=== PATIENT | male | born 1950 | race Caucasian/White ===

== ENCOUNTER → 2016-06-28 | Outpatient (CLI) | payer BC ==
[~2016-06-28] MED LIST: ASPI81TA25 PO; ATV/2 PO; CARB25TA12 PO; IBUP-1277 PO; LAMO25TA PO; METO25TA3 PO; SIMV20TA5 PO
--- NOTE | 2016-07-05 06:42 | CODING QUERY MEDICAL NECESSITY ---
SUPPORTING DIAGNOSIS NEEDED A supporting diagnosis is required for the test/procedure performed on this patient in order for us to be reimbursed by the patient's insurance. Please provide a supporting diagnosis for the following test/procedure listed below next to the test name along with your signature. *If there is no additional diagnosis for this patient that would support the following test/procedure please document that below next to the test/procedure. Test(s)/Procedure(s) that require a supporting diagnosis: * PSA DIAGNOSIS: * DOS: 06/28/16 Provider Signature: Date: Thank you Samara Esparza [employer] Once completed, please kindly fax back to [phone] For questions please call [phone]
== END | disposition home or self-care (01) ==
LOC: C.LAB1850 14:26
PROVIDERS: ATTEND Urology
DX: R39.9 Unspecified symptoms and signs involving the genitourinary system (principal); R97.20 Elevated prostate specific antigen [PSA]

== ENCOUNTER → 2017-03-02 | Outpatient (CLI) | payer BC | END | disposition home or self-care (01) | LOC: C.LAB 18:38 | PROVIDERS: ATTEND Urology | DX: R39.9 Unspecified symptoms and signs involving the genitourinary system (principal) ==

== ENCOUNTER 2017-12-19 08:52 | Inpatient (IN) | payer BC, OTHER ==
[2017-11-30 16:23] VITALS: BMI 18.0
[2017-12-06 14:30] VITALS: BMI 18.0
--- NOTE | 2017-12-06 14:46 | PAT Medication Instructions ---
Service Date Dec 06, 2017. Current Home Medication List Aspirin (Aspir-Low), 81 MG PO QAM Carbidopa/Levodopa (Sinemet 25MG/100MG), 1 TAB PO QID Dutasteride (Avodart), 0.5 MG PO NOON Enteral Nutrition Formula (Ensure Plus Vanilla), 1 CAN GJT TID Ibuprofen (Advil), 400-600 MG PO Q6H PRN for Pain Lamotrigine (Lamictal), 25 MG PO HS Lorazepam (Ativan), 2 MG PO BID PRN for Anxiety Metoprolol Succ (Toprol Xl) (Toprol-Xl), 12.5 MG PO QAM Mirabegron (Myrbetriq Er), 50 MG PO QAM Simvastatin (Zocor), 20 MG PO QPM Tamsulosin Hcl (Flomax), 0.4 MG PO QPM Trospium Chloride (Trospium Chloride Er), 60 MG PO QAM Medication Instructions For Your Scheduled Surgery -Check with surgeon: Ibuprofen (Advil), 400-600 MG PO Q6H PRN for Pain Aspirin (Aspir-Low), 81 MG PO QAM - Hold the following medications the morning of surgery: Enteral Nutrition Formula (Ensure Plus Vanilla), 1 CAN GJT TID Mirabegron (Myrbetriq Er), 50 MG PO QAM Trospium Chloride (Trospium Chloride Er), 60 MG PO QAM - Take the following medications the morning of surgery with a sip of water: Carbidopa/Levodopa (Sinemet 25MG/100MG), 1 TAB PO QID Lorazepam (Ativan), 2 MG PO BID PRN for Anxiety (if needed) Metoprolol Succ (Toprol Xl) (Toprol-Xl), 12.5 MG PO QAM - Take the following medications as scheduled the night before surgery: Carbidopa/Levodopa (Sinemet 25MG/100MG), 1 TAB PO QID Dutasteride (Avodart), 0.5 MG PO NOON Enteral Nutrition Formula (Ensure Plus Vanilla), 1 CAN GJT TID Lamotrigine (Lamictal), 25 MG PO HS Lorazepam (Ativan), 2 MG PO BID PRN for Anxiety (if needed) Simvastatin (Zocor), 20 MG PO QPM Tamsulosin Hcl (Flomax), 0.4 MG PO QPM If you have any questions please call us at [phone] or [phone] or [phone]
[2017-12-19] VITALS (7 sets, daily range): BP systolic 111–174; BP diastolic 62–83; PULSE 52–75; TEMP 36.4–36.9; O2SAT 95–99; BMI 18.0
[~2017-12-19] VITALS: Ht 177.8 cm; Wt 58.8 kg
[~2017-12-19 08:52] MED LIST changes: +ATROPINE SULFATE 0.1 MG/ML 5ML SYR IV PRN; +DUTA0.5C PO; +EpHEDrine SULFATE INJ 50 MG/ML AMP IV PRN; +LACTATED RINGER'S 1000ML 1,000 ML IV SCH; +MIRA1TAB3 PO; +NUTR-977 PO; +ONDANSETRON INJ 2 MG/ML 2 ML VIAL IV PRN; +TAMS0.4C38 PO; +TROS1CAP2 PO
[2017-12-19] MEDS ORDERED: LIDOCAINE HCL 2% 2 ML VIAL (20MG/ML) ONE (09:16)
[2017-12-19] MEDS ORDERED: ONDANSETRON INJ 2 MG/ML 2 ML VIAL ONE (09:16)
[2017-12-19] MEDS ORDERED: FENTANYL CITRATE INJ 50 MCG/1 ML 2 ML VIAL ONE ×2 (09:16→10:37)
[2017-12-19] MEDS ORDERED: PROPOFOL IV EMULSION 10 MG/ML 20 ML VIAL ONE (09:16)
[2017-12-19] MEDS ORDERED: MIDAZOLAM HCL 1 MG/ML 2ML VIAL ONE (09:16)
[2017-12-19] MEDS ORDERED: DEXAMETHASONE SOD INJ 4 MG/ML VIAL ONE (09:16)
--- NOTE | 2017-12-19 09:35 | History & Physical Bridge Note ---
H&P Re-Evaluation Bridge Note: I have examined the patient, reviewed the History & Physical and in the interval since the performance of the History & Physical I have noted the following changes of clinical significance: No changes noted
[2017-12-19] MEDS ORDERED: BUPIVACAINE 0.25% 30 ML VIAL ONE (09:46)
[2017-12-19] MEDS ORDERED: CIPROFLOXACIN / D5W 400 MG IV SCH (10:00)
[2017-12-19] MEDS: FENTANYL CITRATE INJ 50 MCG/1 ML 2 ML VIAL IV PRN ×4 (11:32→11:47)
[2017-12-19] MEDS ORDERED: LORAZEPAM 2 MG TAB PO PRN (11:45)
[2017-12-19] MEDS ORDERED: HYDROmorphone INJ 1 MG/ML SYR IV PRN (11:45)
[2017-12-19] MEDS ORDERED: ONDANSETRON INJ 2 MG/ML 2 ML VIAL IV PRN (11:45)
[2017-12-19] MEDS ORDERED: PHENAZOPYRIDINE HCL 200 MG TAB PO PRN (11:45)
--- NOTE | 2017-12-19 12:02 | [facility] Operative Report ---
Operative Report Operative Date Dec 19, 2017. Pre-Operative Diagnosis Bladder Stones Post-Operative Diagnosis Bladder Stones Procedure(s) Performed Open Lithopaxy Surgeon Dr. Efrain Levin Marketing Teacher Surgeon(s) Dr. Too Sharma Estimated Blood Loss 20 ml Findings Patient had a large bladder stone Specimens A: Bladder stone for analysis Drains 22 [place] Shi catheter in the bladder 15 [place] Oj-Jorgensen drain Anesthesia Type General Complication(s) none Disposition yes Indications 67-year-old white male with a large bladder stone being admitted for open litholapaxy Description of Procedure After the induction of an adequate general anesthesia and appropriate timeout patient's lower abdomen genitalia were prepped with ChloraPrep and draped in sterile fashion. A 22 [place] Shi catheter was then inserted per urethra into the bladder bladder was filled with sterile saline. Lower midline abdominal incision was made being carried down through skin subcutaneous tissues down to the fascia the fascia was sharply opened in the midline. The rectus muscles were split. Holding stitches of 3-0 chromic were then placed on the left and right sides of the bladder. The bladder was then opened with electrocautery the sterile saline was then drained from the bladder. The bladder stone was then extracted from the bladder. The bladder was then irrigated with sterile saline to remove any small fragments and sand-like material which was present. After cleaning out the bladder entirely any bleeding points were electrocoagulated. The bladder was then closed in 3 layers the mucosa was closed with a running 3-0 chromic the muscular layer was closed with a running 2 -0 Vicryl and then reinforced with a 2-0 Vicryl in a Lembert type fashion. Shi was irrigated there was no leak from the bladder. 15 [place] Oj- Jorgnesen drain was placed over the top of the bladder and brought out through separate stab wound sutured in place with a 3-0 nylon. the fascia was reapproximated with 0 Vicryl and the skin was closed with a subcuticular 4 -0 Monocryl. Wound was then washed and dried and a dry sterile dressing was applied. All needle sponge and instrument counts are correct at the end of the case. Patient tolerated the procedure well and was taken recovery room in stable condition I attest to the content of the Intraoperative Record and any orders documented therein. Any exceptions are noted below.
--- NOTE | 2017-12-19 13:47 | Anesthesiology Progress Note ---
Anesthesia Post Op Note Date & Time Dec 19, 2017 at 13:47 Vital Signs Pain Intensity: 0.0 Vital Signs Past 12 Hours Date Time Temp Pulse Resp B/P (MAP) Pulse Ox O2 Delivery O2 Flow Rate FiO2 12/19/17 13:37 65 16 148/68 (94) 99 Nasal Cannula 2.0 12/19/17 12:40 36.4 67 17 174/83 (113) 98 Nasal Cannula 2.0 12/19/17 12:40 Nasal Cannula 2.0 12/19/17 12:40 Nasal Cannula 2.0 12/19/17 12:15 59 16 173/84 95 Room Air 12/19/17 12:05 36.2 58 16 167/78 95 Room Air 12/19/17 11:55 60 16 168/75 99 Oxymask 3 12/19/17 11:45 63 16 162/77 100 Oxymask 5 12/19/17 11:35 64 16 160/82 99 Oxymask 5 12/19/17 11:27 36.1 75 16 140/79 99 Oxymask 5 12/19/17 09:42 36.7 52 20 140/70 (93) 98 Room Air Notes Mental Status: alert / awake / arousable, participated in evaluation Pt Amnestic to Procedure: Yes Nausea / Vomiting: adequately controlled Pain: adequately controlled Airway Patency, RR, SpO2: stable & adequate BP & HR: stable & adequate Hydration State: stable & adequate Anesthetic Complications: no major complications apparent
[2017-12-19] MEDS: CARBIDOPA/LEVODOPA 25/100MG TAB PO SCH ×3 (14:47→20:42)
[2017-12-19] MEDS: KETOROLAC TROMETHAMINE 15 MG/ML VIAL IV. PRN ×2 (14:51→20:48)
[2017-12-19] MEDS: D5W AND 1/2NSS + 20MEQ KCL 1,000 ML IV SCH (17:26)
[2017-12-19] MEDS: TAMSULOSIN HCL 0.4 MG CAP PO SCH (20:41)
[2017-12-19] MEDS: SIMVASTATIN 20 MG TAB PO SCH (20:42)
[2017-12-19] MEDS: DOCUSATE SODIUM 100 MG CAP PO SCH (20:54)
[2017-12-19] MEDS: CIPROFLOXACIN / D5W 400 MG in PREMIXED IN D5W 200 ML IV SCH (21:37)
[2017-12-19] MEDS ORDERED: CIPROFLOXACIN / D5W 400 MG in PREMIXED IN D5W 0 ML IV SCH (22:00)
[2017-12-19] MEDS ORDERED: NURSING DECISION MEDICATION ORDER SCH (23:30)
[2017-12-20] VITALS (9 sets, daily range): BP systolic 109–163; BP diastolic 53–71; PULSE 61–84; TEMP 36.7–37.5; O2SAT 95–96; Ht 177.8 cm; Wt 58.8 kg
[2017-12-20] MEDS: D5W AND 1/2NSS + 20MEQ KCL 1,000 ML IV SCH (03:03)
[2017-12-20] MEDS: KETOROLAC TROMETHAMINE 15 MG/ML VIAL IV. PRN ×2 (03:03→09:56)
[2017-12-20 06:03] LABS: BASO % 0.1 %; BASO ABS # 0.01 K/uL (0-0.2); EOS % 0.5 %; EOS ABS # 0.07 K/uL (0-0.5); HEMATOCRIT 34.8 % (42-52); HEMOGLOBIN 11.4 g/dL (14.0-18.0); IG# 0.02 K/uL (0.00-0.02); LYMPH ABS # 1.19 K/uL (1.2-3.4); MEAN CELL VOLUME 100.3 fL (80-100); MEAN CORPUSCULAR HEMOGLOBIN 32.9 pg (25-34); MEAN CORPUSCULAR HGB CONC 32.8 g/dl (32-36); MEAN PLATELET VOLUME 9.3 fL (7.4-10.4); MONO % 9.3 %; MONO ABS # 1.24 K/uL (0.11-0.59); NEUT % 80.9 %; NEUT ABS # 10.75 K/uL (1.4-6.5); PLATELET COUNT 161 K/uL (130-400); RED CELL DISTRIBUTION WIDTH CV 13.4 % (11.5-14.5); RED CELL DISTRIBUTION WIDTH SD 48.7 fL (36.4-46.3); WHITE BLOOD COUNT 13.28 K/uL (4.8-10.8)
[2017-12-20 06:38] LABS: CALCIUM 7.8 mg/dl (8.5-10.1); CREATININE 0.9 mg/dl (0.60-1.40)
--- NOTE | 2017-12-20 09:27 | Clinical Documentation Query ---
AMIRAH Barron : CLINICAL DOCUMENTATION QUERIES QUERY 1 OF 2 Patient is a 67 year old male who underwent open litholapaxy on 12/19. H&P reviewed for severity of illness as well as historical EMR documentation. As appropriate, consider incorporation of the following diagnoses as this affects accurate DRG assignment. Thank you. In your clinical opinion is this patient being managed for: ( ) Chronic systolic CHF, cardiomyopathy ( ) Not Agree ( ) Other explanation of clinical findings (No explanation is considered a No Response) ( ) Unable to determine ( ) Need to Discuss (Phone CDS or qliq) (No discussion is considered a No Response) The medical record reflects the following clinical findings, treatment, and risk factors. Clinical Indicators: Historical documentation. Echocardiogram (06/27/15) demonstrated a mild to moderately reduced LV systolic function. Treatment: Coreg, ASA Risk Factors: Age, hypertension QUERY 2 OF 2 BMI, per EMR is 18.6 kg/m*m. In order to capture this clinical information, an associated diagnosis must explicitly be documented by the provider per CMS coding guidelines. In your clinical opinion is this patient being managed for: ( ) Underweight, BMI 18.6 kg/m*m ( ) Not Agree ( ) Other explanation of clinical findings (No explanation is considered a No Response) ( ) Unable to determine ( ) Need to Discuss (Phone CDS or qliq) (No discussion is considered a No Response) The medical record reflects the following clinical findings, treatment, and risk factors. Clinical Indicators: As above Treatment: Regular diet, I/O Risk Factors: Inadequate caloric intake, age Please clarify and document your clinical opinion in the progress notes and discharge summary. Terms such as "probable", "suspected", "likely", "questionable", "possible", or "still to be ruled out" are acceptable. IF IN AGREEMENT, YOU MUST DOCUMENT ABOVE DIAGNOSTIC STATEMENT IN DAILY PROGRESS NOTES AND DISCHARGE SUMMARY. This document is not part of the patient's record. Thank You, Hitesh Liao, KARLA [phone]
[2017-12-20] MEDS: DOCUSATE SODIUM 100 MG CAP PO SCH ×2 (09:46→19:26)
[2017-12-20] MEDS: ASPIRIN 81 MG ECTAB PO SCH (09:46)
[2017-12-20] MEDS: MIRABEGRON ER 25 MG TAB PO SCH (09:46)
[2017-12-20] MEDS: CARBIDOPA/LEVODOPA 25/100MG TAB PO SCH ×4 (09:46→19:26)
[2017-12-20] MEDS: CIPROFLOXACIN / D5W 400 MG in PREMIXED IN D5W 200 ML IV SCH (09:46)
--- NOTE | 2017-12-20 09:48 | Urology Progress Note ---
Progress Note Date of Service Dec 20, 2017. Subjective Pt evaluation today including: conversation w/ patient, chart review, lab review Pain: incisional pain Voiding: grant catheter in place (patent, draining light caruso colored urine ) 67 yo male s/p open lithopaxy. Pt c/o some incisional pain this morning. Denies n/v. Tolerating PO. + flatus. Denies BM. Pt reports ambulating to the hallway yesterday with a walker. He reports some dizziness while walking. Labs stable. Constitutional: No fever, No chills Respiratory: No shortness of breath Cardiovascular: No chest pain Abdomen: + pain (incisional pain ), No nausea, No vomiting Male : + hematuria Heme: No abnormal bleeding/bruising Objective Vital Signs Date Time Temp Pulse Resp B/P (MAP) Pulse Ox O2 Delivery O2 Flow Rate FiO2 12/20/17 07:59 95 Room Air 12/20/17 07:37 37.5 69 17 116/61 (79) 95 Room Air 12/20/17 07:20 Room Air 12/20/17 07:20 37.1 12/20/17 04:03 37.3 68 16 122/67 (85) 95 Room Air 12/19/17 23:30 Room Air 12/19/17 23:03 36.7 67 18 130/65 (86) 95 Room Air 12/19/17 19:03 36.9 63 16 111/62 (78) 95 Room Air 12/19/17 15:15 Room Air 12/19/17 14:58 75 16 138/75 (96) 99 12/19/17 14:10 74 16 137/68 (91) 99 12/19/17 13:37 65 16 148/68 (94) 99 Nasal Cannula 2.0 12/19/17 12:40 36.4 67 17 174/83 (113) 98 Nasal Cannula 2.0 12/19/17 12:40 Nasal Cannula 2.0 12/19/17 12:40 Nasal Cannula 2.0 12/19/17 12:15 59 16 173/84 95 Room Air 12/19/17 12:05 36.2 58 16 167/78 95 Room Air 12/19/17 11:55 60 16 168/75 99 Oxymask 3 12/19/17 11:45 63 16 162/77 100 Oxymask 5 12/19/17 11:35 64 16 160/82 99 Oxymask 5 12/19/17 11:27 36.1 75 16 140/79 99 Oxymask 5 12/19/17 09:42 36.7 52 20 140/70 (93) 98 Room Air Physical Exam General Appearance: no apparent distress Eyes: normal inspection ENT: hearing grossly normal Neck: no JVD Respiratory/Chest: no respiratory distress, no accessory muscle use Cardiovascular: no JVD Abdomen: + pertinent finding (incision c/d/i; CHERYL draining sanguinous fluid) Extremities: normal inspection Neurologic/Psychiatric: alert, normal mood/affect, oriented x 3 Skin: normal color Laboratory Results Last 24 Hours Test 12/19/17 11:05 12/20/17 05:50 White Blood Count 13.28 K/uL Red Blood Count 3.47 M/uL Hemoglobin 11.4 g/dL Hematocrit 34.8 % Mean Corpuscular Volume 100.3 fL Mean Corpuscular Hemoglobin 32.9 pg Mean Corpuscular Hemoglobin Concent 32.8 g/dl Platelet Count 161 K/uL Mean Platelet Volume 9.3 fL Neutrophils (%) (Auto) 80.9 % Lymphocytes (%) (Auto) 9.0 % Monocytes (%) (Auto) 9.3 % Eosinophils (%) (Auto) 0.5 % Basophils (%) (Auto) 0.1 % Neutrophils # (Auto) 10.75 K/uL Lymphocytes # (Auto) 1.19 K/uL Monocytes # (Auto) 1.24 K/uL Eosinophils # (Auto) 0.07 K/uL Basophils # (Auto) 0.01 K/uL RDW Standard Deviation 48.7 fL RDW Coefficient of Variation 13.4 % Immature Granulocyte % (Auto) 0.2 % Immature Granulocyte # (Auto) 0.02 K/uL Sodium Level 138 mmol/L Potassium Level 4.0 mmol/L Chloride Level 108 mmol/L Carbon Dioxide Level 26 mmol/L Anion Gap 4.0 mmol/L Blood Urea Nitrogen 14 mg/dl Creatinine 0.90 mg/dl Est Creatinine Clear Calc Drug Dose 64.4 ml/min Estimated GFR () 100.6 Estimated GFR (Non- 86.8 BUN/Creatinine Ratio 15.4 Random Glucose 114 mg/dl Calcium Level 7.8 mg/dl Assessment and Plan POD #1 s/p open lithopaxy Pt clinically stable. Will hep lock IVF. Continue diet. Encourage use of IS. Encourage ambulation to hallway. Will order PT/OT eval as the pt reports he has been dizzy and weak at times. Uses a walker at home. Possible d/c home after lunch if pain controlled and ambulating without difficulty. Will attempt to set him up with home health. He does report he lives with his , and his son is staying with him for the next 5 days. Pt seen and examined CHERYL minimal output urine clearing can remove cheryl grant to remain for 10 days Discharge planning: home with home health
[2017-12-20] MEDS ORDERED: TRAM-10 PO (09:51)
[2017-12-20] MEDS ORDERED: CIPR1TAB10 PO (09:51)
[2017-12-20] MEDS ORDERED: PHEN-1043 PO (09:51)
[2017-12-20] MEDS ORDERED: CLC100 PO (09:51)
--- NOTE | 2017-12-20 10:02 | Discharge Instructions ---
Discharge Instructions Date of Service Dec 20, 2017. Admission Reason for Admission: Bladder Stone Discharge Discharge Diagnosis / Problem: Bladder stone Discharge Goals Goal(s): Decrease discomfort, Improve function, Increase independence, Improve disease control, Improve nutritional status, Therapeutic intervention Activity Recommendations Activity Limitations: as noted below Lifting Limitations: no more than 10 pounds (x 6 weeks) Exercise/Sports Limitations: rest today, gradually increase as tolerated ( Light activity x 6 weeks) May Resume Sexual Activity: after follow-up appointment (When cleared by Dr. Levin.) Shower/Bathe: tomorrow Driving or Machine Use: Do not drive x 2 weeks. . Instructions / Follow-Up Instructions / Follow-Up 1.Follow-up for cystogram on 12-29-17 at 7:45am. Follow-up for grant catheter removal on 12-29-[address] Levin's office. Please call [phone] if you need to reschedule for any reason. 2. You have been prescribed the antibiotic Ciprofloxacin. Finish all as directed. Current Hospital Diet Patient's current hospital diet: Regular Diet Discharge Diet Recommended Diet: Regular Diet Procedures Procedures Performed: Open Lithopaxy Pending Studies Studies pending at discharge: yes List of pending studies: bladder stone Medical Emergencies . Who to Call and When: Medical Emergencies: If at any time you feel your situation is an emergency, please call 911 immediately. . Non-Emergent Contact Non-Emergency issues call your: Urologist Call Non-Emergent contact if: temperature is above 101.5, your pain is not controlled, your pain is worsening, your pain is unusual for you, your pain is concerning you, wound has increased drainage, wound has increased redness, wound has increased pain, you have any medication questions . . "Provider Documentation" section prepared by Mahnaz Fofana. . [place] Drug Monitoring Program Search Results: patient reviewed within database, see additional documentation (Chronic Lorazepam prescriptions. No narcotics noted. )
[2017-12-20] MEDS: METOPROLOL SUCC 25MG EXT REL TAB PO SCH (10:49)
[2017-12-20] MEDS ORDERED: NURSING VERBAL MED ORDER ONE (12:15)
[2017-12-20 14:53] LABS: HEMATOCRIT 36.6 % (42-52); HEMOGLOBIN 11.9 g/dL (14.0-18.0); MEAN CELL VOLUME 101.1 fL (80-100); MEAN CORPUSCULAR HEMOGLOBIN 32.9 pg (25-34); MEAN CORPUSCULAR HGB CONC 32.5 g/dl (32-36); MEAN PLATELET VOLUME 9.3 fL (7.4-10.4); PLATELET COUNT 170 K/uL (130-400); RED CELL DISTRIBUTION WIDTH CV 13.4 % (11.5-14.5); RED CELL DISTRIBUTION WIDTH SD 49.8 fL (36.4-46.3); WHITE BLOOD COUNT 14.76 K/uL (4.8-10.8)
[2017-12-20 15:20] LABS: CALCIUM 8.2 mg/dl (8.5-10.1); CREATININE 0.91 mg/dl (0.60-1.40); POTASSIUM 4.4 mmol/L (3.5-5.1)
[2017-12-20] MEDS: SIMVASTATIN 20 MG TAB PO SCH (19:26)
[2017-12-20] MEDS: TAMSULOSIN HCL 0.4 MG CAP PO SCH (19:26)
[2017-12-21] VITALS (8 sets, daily range): BP systolic 97–169; BP diastolic 50–79; PULSE 60–71; TEMP 36.6–37.4; O2SAT 9–96
[2017-12-21 07:01] LABS: HEMATOCRIT 38.8 % (42-52); HEMOGLOBIN 12.7 g/dL (14.0-18.0); MEAN CORPUSCULAR HEMOGLOBIN 32.4 pg (25-34); MEAN CORPUSCULAR HGB CONC 32.7 g/dl (32-36); MEAN PLATELET VOLUME 9.3 fL (7.4-10.4); PLATELET COUNT 175 K/uL (130-400); RED CELL DISTRIBUTION WIDTH CV 13.3 % (11.5-14.5); RED CELL DISTRIBUTION WIDTH SD 47.5 fL (36.4-46.3); WHITE BLOOD COUNT 16.04 K/uL (4.8-10.8)
[2017-12-21 07:45] LABS: CALCIUM 8.6 mg/dl (8.5-10.1); CREATININE 0.61 mg/dl (0.60-1.40); POTASSIUM 3.9 mmol/L (3.5-5.1)
--- NOTE | 2017-12-21 08:21 | Urology Progress Note ---
Progress Note Date of Service Dec 21, 2017. Subjective Pt evaluation today including: conversation w/ patient, chart review, lab review Pain: Denies Voiding: grant catheter in place (patent, draining clear, yellow urine ) Pt denies pain or n/v this morning. PT yesterday recommended SNF placement for rehab d/t weakness. White count noted to have increased to 16.04 this morning. Post-op Cipro discontinued yesterday. Constitutional: No fever, No chills Respiratory: No shortness of breath Cardiovascular: No chest pain Abdomen: No pain, No nausea, No vomiting Male : No hematuria Heme: No abnormal bleeding/bruising Objective Vital Signs Date Time Temp Pulse Resp B/P (MAP) Pulse Ox O2 Delivery O2 Flow Rate FiO2 12/21/17 08:14 95 12/21/17 07:58 37.3 68 16 122/68 (86) 95 Room Air 12/20/17 23:15 36.7 71 18 163/71 (101) 95 Room Air 12/20/17 20:00 Room Air 12/20/17 15:15 Room Air 12/20/17 15:00 37.4 62 16 112/53 (72) 96 12/20/17 11:47 84 96 12/20/17 10:47 36.9 61 109/62 (78) Physical Exam General Appearance: no apparent distress Eyes: normal inspection ENT: hearing grossly normal Neck: no JVD Respiratory/Chest: no respiratory distress, no accessory muscle use Abdomen: + pertinent finding (abdominal incision c/d/i; CARL draining small amount of serosanguinous fluid) Extremities: normal inspection Neurologic/Psychiatric: alert, normal mood/affect, oriented x 3 Skin: normal color Laboratory Results Last 24 Hours Test 12/20/17 14:42 12/21/17 06:27 White Blood Count 14.76 K/uL 16.04 K/uL Red Blood Count 3.62 M/uL 3.92 M/uL Hemoglobin 11.9 g/dL 12.7 g/dL Hematocrit 36.6 % 38.8 % Mean Corpuscular Volume 101.1 fL 99.0 fL Mean Corpuscular Hemoglobin 32.9 pg 32.4 pg Mean Corpuscular Hemoglobin Concent 32.5 g/dl 32.7 g/dl RDW Standard Deviation 49.8 fL 47.5 fL RDW Coefficient of Variation 13.4 % 13.3 % Platelet Count 170 K/uL 175 K/uL Mean Platelet Volume 9.3 fL 9.3 fL Sodium Level 138 mmol/L 137 mmol/L Potassium Level 4.4 mmol/L 3.9 mmol/L Chloride Level 106 mmol/L 104 mmol/L Carbon Dioxide Level 28 mmol/L 27 mmol/L Anion Gap 4.0 mmol/L 6.0 mmol/L Blood Urea Nitrogen 16 mg/dl 10 mg/dl Creatinine 0.91 mg/dl 0.61 mg/dl Est Creatinine Clear Calc Drug Dose 63.7 ml/min 95.1 ml/min Estimated GFR () 99.3 118.1 Estimated GFR (Non- 85.7 101.9 BUN/Creatinine Ratio 17.4 16.9 Random Glucose 145 mg/dl 113 mg/dl Calcium Level 8.2 mg/dl 8.6 mg/dl Assessment and Plan POD #2 s/p open lithopaxy Pt clinically stable. Will transition him to PO Cipro. Continue diet. Encourage use of IS. Continue PT/OT. Plan for d/c when placement available at SNF for rehab. Pt seen this morning urine clear abd benign wound clean ok for discharge to rehab facility
[2017-12-21] MEDS: DOCUSATE SODIUM 100 MG CAP PO SCH ×2 (08:36→19:47)
[2017-12-21] MEDS: METOPROLOL SUCC 25MG EXT REL TAB PO SCH (08:36)
[2017-12-21] MEDS: MIRABEGRON ER 25 MG TAB PO SCH (08:37)
[2017-12-21] MEDS: CARBIDOPA/LEVODOPA 25/100MG TAB PO SCH ×4 (08:37→19:46)
[2017-12-21] MEDS: ASPIRIN 81 MG ECTAB PO SCH (08:37)
[2017-12-21] MEDS: CIPROFLOXACIN 500 MG TAB PO SCH ×2 (09:34→19:47)
[2017-12-21] MEDS: KETOROLAC TROMETHAMINE 15 MG/ML VIAL IV. PRN (10:23)
[2017-12-21 15:47] LABS: BASO % 0.1 %; BASO ABS # 0.02 K/uL (0-0.2); EOS % 1.5 %; EOS ABS # 0.22 K/uL (0-0.5); HEMATOCRIT 38.4 % (42-52); HEMOGLOBIN 12.6 g/dL (14.0-18.0); IG# 0.03 K/uL (0.00-0.02); LYMPH % 7.5 %; LYMPH ABS # 1.09 K/uL (1.2-3.4); MEAN CELL VOLUME 100.8 fL (80-100); MEAN CORPUSCULAR HEMOGLOBIN 33.1 pg (25-34); MEAN CORPUSCULAR HGB CONC 32.8 g/dl (32-36); MEAN PLATELET VOLUME 9.8 fL (7.4-10.4); MONO % 9.5 %; MONO ABS # 1.39 K/uL (0.11-0.59); NEUT % 81.2 %; NEUT ABS # 11.81 K/uL (1.4-6.5); PLATELET COUNT 186 K/uL (130-400); RED CELL DISTRIBUTION WIDTH CV 13.4 % (11.5-14.5); RED CELL DISTRIBUTION WIDTH SD 49.2 fL (36.4-46.3); WHITE BLOOD COUNT 14.56 K/uL (4.8-10.8)
[2017-12-21] MEDS ORDERED: OXYMETAZOLINE HCL 0.05% NA SPR 15 ML BTL ONE (17:45)
[2017-12-21] MEDS: SIMVASTATIN 20 MG TAB PO SCH (19:46)
[2017-12-21] MEDS: TAMSULOSIN HCL 0.4 MG CAP PO SCH (19:47)
[2017-12-21] MEDS: FLUTICASONE PROPIONATE NA SPR 16 GM BTL SCH (19:48)
--- NOTE | 2017-12-21 23:43 | Medical Consult ---
Consultation Date of Consultation: Dec 21, 2017. Attending Physician: Efrain Levin MD Reason for Consultation: medical management . History of Present Illness 67-year-old male followed by Dr. Martinez for Family Medicine and Dr. Dover for Cardiology. History of takotsubo cardiomyopathy with recovery of left ventricular function. History of hypertension, cerebellar ataxia, and other problems noted below. Recent CT of pelvis demonstrated a large calculus in the urinary bladder. Open lithoplaxy performed by Dr. Levin on 12/19/17. Medical evaluation was requested today by Urology. Consult request indicated that patient's is concerned about change in patient's speech. Spouse is not present at time of my evaluation. His son was visiting at the bedside. Both the patient and his son feel that his speech is at baseline. Patient's main complaint is some nasal congestion and postnasal drainage which she attributes to seasonal allergies. He indicates that otherwise he has been doing fairly well postoperatively. No chest pain. No cough or dyspnea. No nausea or vomiting. Has some discomfort from urinary catheter. . Past Medical/Surgical History Chronic and Resolved Medical Problems: (1) Basal cell carcinoma Status: Chronic (2) BPH (benign prostatic hyperplasia) Status: Chronic (3) Cerebellar ataxia Status: Chronic (4) Dyslipidemia Status: Chronic (5) HTN (hypertension) Status: Chronic (7) Takotsubo cardiomyopathy Status: Resolved (8) Urinary retention Status: Chronic Surgical Problems: (1) History of inguinal hernia repair, bilateral Status: Chronic . Family History Heart disease Hypertension Social History Smoking Status: Former Smoker Alcohol Use: none Drug Use: none Marital Status: Housing Status: lives with significant other Occupation Status: retired Allergies Coded Allergies: Meperidine (Verified Allergy, Unknown, HIVES, SOB, 11/30/17) Oxycodone (Unverified Allergy, Unknown, NAUSEA, 11/30/17) Penicillins (Unverified Allergy, Unknown, UNKNOWN, 11/30/17) Home Medications Reported Home Medications Medications Dose Route/Sig Max Daily Dose Days Date Category Ultram (Tramadol HCl) 50 Mg Tab 50 Mg PO Q4H PRN 12/20/17 Rx Cipro (Ciprofloxacin Hcl) 500 Mg Tab 500 Mg PO BID 12/20/17 Rx Phenazopyridine HCl 200 Mg Tab 200 Mg PO Q8H PRN 12/20/17 Rx Docusate Sodium 100 Mg Cap 100 Mg PO BID PRN 12/20/17 Rx Ensure Plus Vanilla (Enteral Nutritional Formula) 1 Can Liqd 1 Can PO TID 11/30/17 Reported Flomax (Tamsulosin Hcl) 0.4 Mg Cap 0.4 Mg PO QPM 11/30/17 Reported Avodart (Dutasteride) 0.5 Mg Cap 0.5 Mg PO NOON 11/30/17 Reported Myrbetriq Er (Mirabegron) 50 Mg Tab 50 Mg PO QAM 11/30/17 Reported Trospium Chloride Er (Trospium Chloride) 60 Mg Cap 60 Mg PO QAM 11/30/17 Reported Lamictal (Lamotrigine) 25 Mg Tab 25 Mg PO HS 08/26/15 Reported Toprol-Xl (Metoprolol Succinate) 25 Mg Tabcr 12.5 Mg PO QAM 08/26/15 Reported Aspir-Low (Aspirin) 81 Mg Tab 81 Mg PO QAM 90 08/26/15 Reported Zocor (Simvastatin) 20 Mg Tab 20 Mg PO QPM 05/24/15 Reported Advil (Ibuprofen) 200 Mg Tab 400-600 Mg PO Q6H PRN 07/21/13 Reported Ativan (Lorazepam) 2 Mg Tab 2 Mg PO BID PRN 07/21/13 Reported Sinemet 25MG/100MG (Carbidopa/Levodopa) Tab 1 Tab PO QID 07/21/13 Reported Current Inpatient Medications Medications (Trade) Dose Ordered Sig/Jhonny Route Start Time Stop Time Status Last Admin Dose Admin Phenazopyridine HCl (Pyridium Tab) 200 mg Q8H PRN PO 12/19/17 11:45 01/18/18 11:44 Ketorolac Tromethamine (Toradol Inj) 15 mg Q6H PRN IV. 12/19/17 11:45 12/24/17 11:44 12/21/17 10:23 15 MG Hydromorphone HCl (Dilaudid Inj) 0.5 mg Q3H PRN IV 12/19/17 11:45 01/02/18 11:44 Ondansetron HCl (Zofran Inj) 4 mg Q6H PRN IV 12/19/17 11:45 01/18/18 11:44 Docusate Sodium (coLACE CAP) 100 mg BID PO 12/19/17 21:00 01/18/18 20:59 12/21/17 19:47 100 MG Aspirin (Ecotrin Tab) 81 mg QAM PO 12/20/17 09:00 01/19/18 08:59 12/21/17 08:37 81 MG Carbidopa/Levodopa (Sinemet 25/ 100MG Tab) 1 tab QID PO 12/19/17 13:00 01/18/18 12:59 12/21/17 19:46 1 TAB Lamotrigine (Lamictal Tab) 25 mg HS PO 12/19/17 21:00 01/18/18 20:59 12/21/17 19:46 25 MG Lorazepam (Ativan Tab) 2 mg BID PRN PO 12/19/17 11:45 01/18/18 11:44 Metoprolol Succinate (Toprol Xl Tab) 12.5 mg QAM PO 12/20/17 09:00 01/19/18 08:59 12/21/17 08:36 12.5 MG Mirabegron (Myrbetriq Er) 50 mg QAM PO 12/20/17 09:00 01/19/18 08:59 12/21/17 08:37 50 MG Simvastatin (Zocor Tab) 20 mg QPM PO 12/19/17 21:00 01/18/18 20:59 12/21/17 19:46 20 MG Tamsulosin HCl (Flomax Cap) 0.4 mg QPM PO 12/19/17 21:00 01/18/18 20:59 12/21/17 19:47 0.4 MG Ciprofloxacin (Cipro Tab) 500 mg BID PO 12/21/17 09:30 12/31/17 09:29 12/21/17 19:47 500 MG Fluticasone Propionate (Flonase Nasal [place]) 2 sprays BID NA 12/21/17 21:00 01/20/18 20:59 . Current Inpatient Medications Current Inpatient Medications Medications (Trade) Dose Ordered Sig/Jhonny Route Start Time Stop Time Status Last Admin Dose Admin Phenazopyridine HCl (Pyridium Tab) 200 mg Q8H PRN PO 12/19/17 11:45 01/18/18 11:44 Ketorolac Tromethamine (Toradol Inj) 15 mg Q6H PRN IV. 12/19/17 11:45 12/24/17 11:44 12/21/17 10:23 15 MG Hydromorphone HCl (Dilaudid Inj) 0.5 mg Q3H PRN IV 12/19/17 11:45 01/02/18 11:44 Ondansetron HCl (Zofran Inj) 4 mg Q6H PRN IV 12/19/17 11:45 01/18/18 11:44 Docusate Sodium (coLACE CAP) 100 mg BID PO 12/19/17 21:00 01/18/18 20:59 12/21/17 19:47 100 MG Aspirin (Ecotrin Tab) 81 mg QAM PO 12/20/17 09:00 01/19/18 08:59 12/21/17 08:37 81 MG Carbidopa/Levodopa (Sinemet 25/ 100MG Tab) 1 tab QID PO 12/19/17 13:00 01/18/18 12:59 12/21/17 19:46 1 TAB Lamotrigine (Lamictal Tab) 25 mg HS PO 12/19/17 21:00 01/18/18 20:59 12/21/17 19:46 25 MG Lorazepam (Ativan Tab) 2 mg BID PRN PO 12/19/17 11:45 01/18/18 11:44 Metoprolol Succinate (Toprol Xl Tab) 12.5 mg QAM PO 12/20/17 09:00 01/19/18 08:59 12/21/17 08:36 12.5 MG Mirabegron (Myrbetriq Er) 50 mg QAM PO 12/20/17 09:00 01/19/18 08:59 12/21/17 08:37 50 MG Simvastatin (Zocor Tab) 20 mg QPM PO 12/19/17 21:00 01/18/18 20:59 12/21/17 19:46 20 MG Tamsulosin HCl (Flomax Cap) 0.4 mg QPM PO 12/19/17 21:00 01/18/18 20:59 12/21/17 19:47 0.4 MG Ciprofloxacin (Cipro Tab) 500 mg BID PO 12/21/17 09:30 12/31/17 09:29 12/21/17 19:47 500 MG Fluticasone Propionate (Flonase Nasal [place]) 2 sprays BID NA 12/21/17 21:00 01/20/18 20:59 Review of Systems As noted above in HPI. . Physical Exam Date Time Temp Pulse Resp B/P (MAP) Pulse Ox O2 Delivery O2 Flow Rate FiO2 12/21/17 22:45 37.4 67 16 169/79 (109) 95 Room Air 12/21/17 20:00 Room Air 12/21/17 15:07 36.6 67 18 101/50 (67) 96 Room Air 12/21/17 13:34 36.8 71 16 97/61 (73) 96 Room Air 12/21/17 11:39 36.8 60 14 117/66 (83) 95 Room Air 12/21/17 08:34 71 124/69 (87) 12/21/17 08:20 95 Room Air 12/21/17 08:14 95 12/21/17 07:58 37.3 68 16 122/68 (86) 95 Room Air CONSTITUTIONAL vital signs as noted above thin, no acute distress EYES conjunctivae clear; lids normal pupils equal and reactive to light EARS, NOSE, MOUTH AND THROAT external inspection of ears and nose unremarkable nasal congestion NECK no masses; trachea midline thyroid normal RESPIRATORY normal respiratory effort; no respiratory distress clear to auscultation CARDIOVASCULAR regular rate and rhythm no murmur, gallop, or rub appreciated pedal pulses diminished capillary refill toes < 2 seconds no pretibial edema GASTROINTESTINAL normal bowel sounds, soft mild tenderness right abdomen lower abdominal incision without erythema or drainage Shi catheter draining clear urine. MUSCULOSKELETAL no cyanosis; no digital clubbing no calf tenderness motor strength extremities grossly intact SKIN warm and dry NEUROLOGIC PERRL, EOMI dysarthric . Laboratory Results Last 24 Hours Test 12/21/17 06:27 12/21/17 15:16 White Blood Count 16.04 K/uL 14.56 K/uL Red Blood Count 3.92 M/uL 3.81 M/uL Hemoglobin 12.7 g/dL 12.6 g/dL Hematocrit 38.8 % 38.4 % Mean Corpuscular Volume 99.0 fL 100.8 fL Mean Corpuscular Hemoglobin 32.4 pg 33.1 pg Mean Corpuscular Hemoglobin Concent 32.7 g/dl 32.8 g/dl RDW Standard Deviation 47.5 fL 49.2 fL RDW Coefficient of Variation 13.3 % 13.4 % Platelet Count 175 K/uL 186 K/uL Mean Platelet Volume 9.3 fL 9.8 fL Sodium Level 137 mmol/L Potassium Level 3.9 mmol/L Chloride Level 104 mmol/L Carbon Dioxide Level 27 mmol/L Anion Gap 6.0 mmol/L Blood Urea Nitrogen 10 mg/dl Creatinine 0.61 mg/dl Est Creatinine Clear Calc Drug Dose 95.1 ml/min Estimated GFR () 118.1 Estimated GFR (Non- 101.9 BUN/Creatinine Ratio 16.9 Random Glucose 113 mg/dl Calcium Level 8.6 mg/dl Neutrophils (%) (Auto) 81.2 % Lymphocytes (%) (Auto) 7.5 % Monocytes (%) (Auto) 9.5 % Eosinophils (%) (Auto) 1.5 % Basophils (%) (Auto) 0.1 % Neutrophils # (Auto) 11.81 K/uL Lymphocytes # (Auto) 1.09 K/uL Monocytes # (Auto) 1.39 K/uL Eosinophils # (Auto) 0.22 K/uL Basophils # (Auto) 0.02 K/uL Immature Granulocyte % (Auto) 0.2 % Immature Granulocyte # (Auto) 0.03 K/uL Procalcitonin 0.10 ng/ml Assessment & Plan S/P LITHOPLAXY POD # 2. LEUKOCYTOSIS WBC day of admission was 13,280. White count this morning was 16,040 with a repeat of 14,568 this afternoon. Afebrile. Procalcitonin normal. Follow. HISTORY TAKOTSUBO CARDIOMYOPATHY History of takotsubo cardiomyopathy with recovery of LV function. HYPERTENSION Continue metoprolol. CEREBELLAR ATAXIA Neuro status appears to be stable. NASAL / SINUS CONGESTION Flonase BID. VTE PROPHYLAXIS SCD's ordered. Thank you for this consultation. We will follow the patient with you during their hospital stay. You can reach a member of the [facility] Medicine Team 12/12 via pager @ [phone]. You can reach me via cell @ [phone]. .
[2017-12-22 05:37] LABS: BASO % 0.2 %; BASO ABS # 0.02 K/uL (0-0.2); EOS % 4.1 %; EOS ABS # 0.53 K/uL (0-0.5); HEMATOCRIT 37.8 % (42-52); HEMOGLOBIN 12.5 g/dL (14.0-18.0); IG# 0.01 K/uL (0.00-0.02); LYMPH % 12.8 %; LYMPH ABS # 1.67 K/uL (1.2-3.4); MEAN CELL VOLUME 99.5 fL (80-100); MEAN CORPUSCULAR HEMOGLOBIN 32.9 pg (25-34); MEAN CORPUSCULAR HGB CONC 33.1 g/dl (32-36); MEAN PLATELET VOLUME 9.4 fL (7.4-10.4); MONO ABS # 1.17 K/uL (0.11-0.59); NEUT % 73.8 %; NEUT ABS # 9.65 K/uL (1.4-6.5); PLATELET COUNT 188 K/uL (130-400); RED CELL DISTRIBUTION WIDTH CV 13.2 % (11.5-14.5); RED CELL DISTRIBUTION WIDTH SD 47.8 fL (36.4-46.3); WHITE BLOOD COUNT 13.05 K/uL (4.8-10.8)
[2017-12-22 06:02] LABS: CALCIUM 8.5 mg/dl (8.5-10.1); CREATININE 0.68 mg/dl (0.60-1.40); POTASSIUM 4.1 mmol/L (3.5-5.1)
[2017-12-22 07:22] VITALS: BP 116/67; PULSE 59; TEMP 36.9; O2SAT 97
[2017-12-22 07:33] VITALS: O2SAT 97
[2017-12-22 08:42] VITALS: BP 104/68; PULSE 77
[2017-12-22] MEDS: ASPIRIN 81 MG ECTAB PO SCH (08:44)
[2017-12-22] MEDS: DOCUSATE SODIUM 100 MG CAP PO SCH (08:44)
[2017-12-22] MEDS: CIPROFLOXACIN 500 MG TAB PO SCH (08:44)
[2017-12-22] MEDS: CARBIDOPA/LEVODOPA 25/100MG TAB PO SCH ×3 (08:45→16:55)
[2017-12-22] MEDS: MIRABEGRON ER 25 MG TAB PO SCH (08:45)
[2017-12-22] MEDS: METOPROLOL SUCC 25MG EXT REL TAB PO SCH (08:45)
[2017-12-22] MEDS: FLUTICASONE PROPIONATE NA SPR 16 GM BTL SCH (08:47)
--- NOTE | 2017-12-22 10:29 | Hospitalist Progress Note ---
Hospitalist Progress Note Date of Service Dec 22, 2017. (Padmini West PA-C) 12/22/17 . (José Miguel Resendiz M.D.) Subjective Pt evaluation today including: conversation w/ patient (and nurse) Patient was seen and evaluated at bedside sitting up in chair in room 385-2 He offers no new complaints today. He has no concerns regarding speech. He recently tried to move bowels and states, "it was unsuccessful." He denies f/c/ s, chest pain, sob, n/v/d. Last BM was day of admission on 12/17/17. He moves his bowels daily, was passing flatulence yesterday, none today. States he took MiraLAX at home which worked for him in the past. + Abdominal pain secondary to incision, drain was removed yesterday per patient. Nursing states patient may be discharged to [facility] today pending [id number] evaluation. Fair appetite. (Padmini West PA-C) Care coordinated with Padmini West PA-C. Patient doing well except for postoperative pain. (José Miguel Resendiz M.D.) Medications reviewed in chart (Padmini West PA-C) Objective Vital Signs Date Time Temp Pulse Resp B/P (MAP) Pulse Ox O2 Delivery O2 Flow Rate FiO2 12/22/17 08:42 77 104/68 (80) 12/22/17 07:33 97 Room Air 12/22/17 07:22 36.9 59 16 116/67 (83) 97 Room Air 12/22/17 00:00 Room Air 12/21/17 22:45 37.4 67 16 169/79 (109) 95 Room Air 12/21/17 20:00 Room Air 12/21/17 15:07 36.6 67 18 101/50 (67) 96 Room Air 12/21/17 13:34 36.8 71 16 97/61 (73) 96 Room Air 12/21/17 11:39 36.8 60 14 117/66 (83) 95 Room Air (Padmini West PA-C) Physical Exam Notes: Gen: Thin, Male, sitting up in chair at bedside, NAD, A&O x3 HEENT: Normocephalic, atraumatic, conjunctivae moist, sclerae anicteric, mucous membranes moist. Lung: Clear to Auscultation bilaterally, no wheezes/rales/rhonchi Heart: Regular rate, regular rhythm, no murmurs, rubs, or gallops Abdomen: Soft, NT, ND +BS x 4 + vertical abdominal incision, CDI, cheryl drain removed, dressing CDI Extremities: No edema, b/l pedal pulses +1 Skin: Warm, no rash, negative turgor. : +grant draining yellow urine, no hematuria noted (Padmini West, LAWSONC) Notes: General- no distress Lungs- clear to auscultation; no respiratory distress Cardiovascular- RRR; II/IV systolic murmur at base; no gallop; no JVD; no pretibial edema Abdomen- lower abdominal incision without erythema or drainage, + bowel sounds, soft, nontender Extremities- no cyanosis; no calf tenderness Neuro- alert, oriented, chronic dysarthria Skin- warm & dry (José Miguel Resendiz M.D.) Laboratory Results Item Value Date Time White Blood Count 13.05 K/uL H 12/22/17 0519 Hemoglobin 12.5 g/dL L 12/22/17 05 Hematocrit 37.8 % L 12/22/17 05 Platelet Count 188 K/uL 12/22/17 0519 Sodium Level 139 mmol/L 12/22/17 0519 Potassium Level 4.1 mmol/L 12/22/17 0519 Chloride Level 108 mmol/L H 12/22/17 05 Carbon Dioxide Level 27 mmol/L 12/22/17 05 Blood Urea Nitrogen 15 mg/dl 12/22/17 0519 Creatinine 0.68 mg/dl 12/22/17 05 Random Glucose 120 mg/dl H 12/22/17 05 (Padmini West PA-C) Assessment and Plan S/P LITHOPLAXY BY DR PUENTE 12/19/17 POD # 3. CHERYL drain removed Continue cipro per urology until 12/31. Follow up urology outpatient CONSTIPATION continue colace. add miralax. Patient does not want suppository. LEUKOCYTOSIS WBC day of admission was 13,280. He is afebrile, with out complaints. WBC today was 13.05. Continue cipro per urology. Follow. HISTORY TAKOTSUBO CARDIOMYOPATHY recovered Left ventricular function HYPERTENSION Blood pressure controlled, on lower side today 104/68 Continue metoprolol. CEREBELLAR ATAXIA stable from a neurology standpoint. NASAL / SINUS CONGESTION continue Flonase BID. VTE PROPHYLAXIS SCD's DISPOSTION: Per RN patient may be d/c to [facility] today pending peer to peer. If denied then possibly discharge to [facility] [place] today or tomorrow. (Padmini West PA-C) Doing well postoperatively. Specific problems as addressed in KISHAN West's notes. Transfer to [facility] today for skilled care. Thank you for this consultation. We will follow the patient with you during their hospital stay. You can reach a member of the [facility] Medicine Team 12/12 via pager @ [phone]. You can reach me via cell @ [phone]. (José Miguel Resendiz M.D.)
[2017-12-22] MEDS: POLYETHYLENE (MIRALAX) 17 GM PACK PO SCH ×2 (10:30→13:03)
[2017-12-22] MEDS ORDERED: KETOROLAC TROMETHAMINE 15 MG/ML VIAL IV. ONE (13:45)
[2017-12-22] MEDS ORDERED: PHENAZOPYRIDINE HCL 200 MG TAB PO PRN (14:00)
[2017-12-22 15:03] VITALS: BP 107/59; PULSE 81; TEMP 36.6; O2SAT 94
--- NOTE | 2017-12-22 15:09 | Progress Note ---
Subjective Date of Service: Dec 22, 2017. Subjective Pt evaluation today including: conversation w/ patient, physical exam, chart review, lab review Pain: pain in r arm at Iv site Voiding: grant catheter in place pt with constipation alert rejected at [facility] to go to [facility] Problem List Medical Problems: (1) Complication of catheter Status: Acute (2) NSTEMI (non-ST elevated myocardial infarction) Status: Acute (3) Urinary obstruction Status: Acute (4) Urinary tract infection Status: Acute Objective Vital Signs Date Time Temp Pulse Resp B/P (MAP) Pulse Ox O2 Delivery O2 Flow Rate FiO2 12/22/17 15:03 36.6 81 18 107/59 (75) 94 Room Air 12/22/17 08:42 77 104/68 (80) 12/22/17 07:33 97 Room Air 12/22/17 07:22 36.9 59 16 116/67 (83) 97 Room Air 12/22/17 00:00 Room Air 12/21/17 22:45 37.4 67 16 169/79 (109) 95 Room Air 12/21/17 20:00 Room Air 12/21/17 15:07 36.6 67 18 101/50 (67) 96 Room Air Physical Exam Abdomen: soft Extremities: no calf tenderness Comments: some erythema around incision but less per pt ,Area marked to follow Laboratory Results Last 24 Hours Test 12/21/17 15:16 12/22/17 05:19 White Blood Count 14.56 K/uL 13.05 K/uL Red Blood Count 3.81 M/uL 3.80 M/uL Hemoglobin 12.6 g/dL 12.5 g/dL Hematocrit 38.4 % 37.8 % Mean Corpuscular Volume 100.8 fL 99.5 fL Mean Corpuscular Hemoglobin 33.1 pg 32.9 pg Mean Corpuscular Hemoglobin Concent 32.8 g/dl 33.1 g/dl Platelet Count 186 K/uL 188 K/uL Mean Platelet Volume 9.8 fL 9.4 fL Neutrophils (%) (Auto) 81.2 % 73.8 % Lymphocytes (%) (Auto) 7.5 % 12.8 % Monocytes (%) (Auto) 9.5 % 9.0 % Eosinophils (%) (Auto) 1.5 % 4.1 % Basophils (%) (Auto) 0.1 % 0.2 % Neutrophils # (Auto) 11.81 K/uL 9.65 K/uL Lymphocytes # (Auto) 1.09 K/uL 1.67 K/uL Monocytes # (Auto) 1.39 K/uL 1.17 K/uL Eosinophils # (Auto) 0.22 K/uL 0.53 K/uL Basophils # (Auto) 0.02 K/uL 0.02 K/uL RDW Standard Deviation 49.2 fL 47.8 fL RDW Coefficient of Variation 13.4 % 13.2 % Immature Granulocyte % (Auto) 0.2 % 0.1 % Immature Granulocyte # (Auto) 0.03 K/uL 0.01 K/uL Procalcitonin 0.10 ng/ml Sodium Level 139 mmol/L Potassium Level 4.1 mmol/L Chloride Level 108 mmol/L Carbon Dioxide Level 27 mmol/L Anion Gap 4.0 mmol/L Blood Urea Nitrogen 15 mg/dl Creatinine 0.68 mg/dl Est Creatinine Clear Calc Drug Dose 85.3 ml/min Estimated GFR () 112.9 Estimated GFR (Non- 97.4 BUN/Creatinine Ratio 22.5 Random Glucose 120 mg/dl Calcium Level 8.5 mg/dl Assessment and Plan ok for discharge with rudy tenorio Discharge planning: home with home health
[2017-12-22 15:10] VITALS: O2SAT 94
[2017-12-22 16:08] VITALS: BP 107/59; PULSE 81; TEMP 36.6; O2SAT 94
[2017-12-22] MEDS ORDERED: LORA1TAB13 PO (17:04)
--- NOTE | 2017-12-26 13:37 | Discharge Summary ---
Discharge Summary Date of Service Dec 26, 2017. Admission Date/Reason Dec 19, 2017 at 11:50 Bladder Stone. Discharge Date/Disposition Dec 22, 2017 longterm facility Diagnosis Principal Diagnosis: Bladder calculus Secondary Diagnoses/Problems: Cerebellar ataxia Procedure(s) Performed Open litholapaxy Admission Physical Exam As per Admitting History & Physical. Hospital Course Patient was admitted post open litholapaxy From urologic standpoint he did well There is a question about a change in his speech although that turned out to really be nothing He was stable for discharge but needed to go to a rehab facility Was eventually discharged to [facility] Discharge Instructions Please refer to the electronic Patient Visit Report (Discharge Instructions) for additional information.
== END 2017-12-22 17:27 | DRG 663 ==
LOC: C.ACU 08:52 → C.MSN 11:50 → ENRESERV 11:59
PROVIDERS: ADMIT Urology; ATTEND Urology
PROC: 0TCB0ZZ Extirpation of Matter from Bladder, Open Approach (ICD-10-PCS; principal; 2017-12-19 10:40)
DX: N21.0 Calculus in bladder (principal); G11.9 Hereditary ataxia, unspecified; D72.829 Elevated white blood cell count, unspecified; K59.00 Constipation, unspecified; E78.5 Hyperlipidemia, unspecified; I10 Essential (primary) hypertension; Z79.82 Long term (current) use of aspirin; Z79.899 Other long term (current) drug therapy

== ENCOUNTER → 2017-12-29 | Outpatient (CLI) | payer BC ==
[~2017-12-29] MED LIST changes: -ATROPINE SULFATE 0.1 MG/ML 5ML SYR IV PRN; -ATV/2 PO; +CIPR1TAB10 PO; +CLC100 PO; -EpHEDrine SULFATE INJ 50 MG/ML AMP IV PRN; -LACTATED RINGER'S 1000ML 1,000 ML IV SCH; +LORA1TAB13 PO; -ONDANSETRON INJ 2 MG/ML 2 ML VIAL IV PRN; +PHEN-1043 PO; +TRAM-10 PO
--- NOTE | 2017-12-29 08:25 | DIAGNOSTIC IMAGING REPORT ---
CYSTOGRAM CLINICAL HISTORY: N21.0 Bladder calculus. Status post open removal. COMPARISON STUDY: Abdomen and pelvis CT 10/27/2017. FLUOROSCOPY TIME: 2.4 minutes. 16 fluoroscopic spot images of the pelvis.. FINDINGS: [employer] Manager images show interval removal of the large bladder calculus. A total of 175 cc of Cysto-Conray was placed in the indwelling Shi catheter. Lobular contour to the bladder. No extraluminal contrast to suggest a leak. Left-sided vesicoureteral reflux is noted. No significant post void residual. IMPRESSION: 1. No extravasation of contrast to suggest a bladder leak. 2. Left-sided vesicoureteral reflux. Electronically signed by: Aaron Ro M.D. 12/29/2017 8:24 AM Dictated Date/Time: 12/29/2017 8:22 AM
== END | disposition home or self-care (01) ==
LOC: C.RAD 07:22
PROVIDERS: ATTEND Urology
DX: N21.0 Calculus in bladder (principal); N13.70 Vesicoureteral-reflux, unspecified